=== PATIENT | female | born 1960 | race Caucasian/White ===

== ENCOUNTER 2023-08-27 11:55 | Emergency (ER) | payer OTHER, SELFPAY ==
[2023-08-27] VITALS (16 sets, daily range): BP systolic 118–153; BP diastolic 71–92; PULSE 78–96; RESP 20; TEMP 36.8; O2SAT 75–100; BMI 25.1
--- NOTE | 2023-08-27 12:27 | CRLHL7_ITS ---
For Patients: As a result of the Century Cures Act, medical imaging exams and procedure reports are released immediately into your electronic medical record. You may view this report before your referring provider. If you have questions, please contact your health care provider. Indication: Chest pain. Technique: Chest 2 views. Comparison: None. Findings: The cardiomediastinal silhouette size is normal. There is no focal pulmonary opacity, pleural effusion or pneumothorax. S shaped curvature of the spine. Impression: No acute cardiopulmonary abnormality. Dictated by Marina Gaytan MD @ 08/27/2023 1:21:32 PM (Electronically Signed)
--- NOTE | 2023-08-27 12:29 | ED_ITS ---
HPI - Chest Pain General Date Seen: 08/27/23 Chief Complaint: Chest Pain Stated Complaint: Chest pain Time Seen by Provider: 08/27/23 11:55 Source: patient and other Mode of arrival: ambulatory Limitations: no limitations History of Present Illness HPI narrative: Cp, started about 45 min ago while at rest. Pain feels like pressure and tightness. Pain has been consistent in weight and intermittent in pressure. Did note that she had some shortness of breath while walking this morning. Pt had an episode in July, did not get evaluated until 8 days later. Was then sent to a hand straightener, who had a CT angiogram on September 06 Patient is a very nice lady who presents here ambulatory from her [facility]. She describes some chest pain that started at 11:30 a.m. this morning while she was walking, this was associated with some shortness of breath, some epigastric discomfort. She had an episode similar to this in July of this year saw cardiology at [facility]. And CT angiogram is scheduled for September 06. She has no previous history of heart issues. She was evaluated in the ER but was 8 days after that she was seen. Her troponins an EKG were normal then. She has not undergone stress testing since then. She currently has some mild chest pressure, but no shortness of breath. There is no radiation of discomfort, she does not feel like she is going to pass out, no history of leg swelling previous clots. She has no previous history of coronary artery disease although her sister who is 10 years younger than her developed a mi, and had to have 2 stents placed when she was 42. History of elevated cholesterol, no history of diabetes, hypertension, drug use. History of a head injury in the past, and some right eye issues after this. She said this does affect her memory. MD complaint: chest pain, chest heaviness and chest discomfort Onset (ago): hour(s) Timing of current episode: still present Prior episodes: Yes Onset: during exertion Pain location: substernal Pain radiation: abdomen Severity: moderate Quality: tightness, heaviness and fullness Relieving factors: remaining still Exacerbating factors: exertion Treatment prior to arrival: none Risk Factors Coronary artery disease risk factors: hyperlipidemia and family history of CAD before age 50 Thoracic aortic dissection risk factors: none Related Data On Oral Contraceptives: No Home Medications ?Medication ?Instructions ?Recorded ?Confirmed atorvastatin 40 mg tablet 40 mg PO DAILY 08/27/23 08/27/23 Allergies Allergy/AdvReac Type Severity Reaction Status Date / Time citalopram [From Celexa] Allergy Verified 08/27/23 12:27 gabapentin Allergy Verified 08/27/23 12:27 Sulfa (Sulfonamide Allergy Hives Verified 08/27/23 12:27 Antibiotics) Review of Systems Status of ROS Reports: 10 or more systems reviewed and unremarkable except as noted in History and below PFSH [facility] Social History Smoking Status: Never smoker Do you use any of these nicotine containing products: None How often do you have a drink containing alcohol: never How often do you have six or more drinks on one occasion: Never AUDIT-C Alcohol total score: 0 Non-prescribed substance use: denies use service: No Exam Narrative Exam Narrative: Patient is speaking normally, no problem with slurring words, oriented x3. Head eyes ears nose and throat exam show equal pupils, no scleral icterus, extraocular muscles are normal, no facial droop, speech is normal, trachea normal and midline. Thyroid normal midline palpable not enlarged. Chest shows symmetrical rise bilaterally, normal auscultation with no wheezes, no increased work of breathing, no overt bruising or lesions seen, no tenderness is noted on auscultation. Heart sounds normal with no S3-S4 no murmurs clicks or gallops. Abdomen shows no obvious masses or hepatosplenomegaly, no organomegaly, bowel sounds are normal in all quadrants. No tenderness is noted also in all quadrants. Upper and lower extremities show normal power, normal range of motion, pulses are normal, sensations normal, fine motor movements are normal, pelvis is stable to rocking. Cervical spine shows normal range of motion, and palpably not tender. Thoracic spine shows normal range of motion, and palpably not tender, lumbar spine shows no tenderness to palpation percussion and is otherwise normal range of motion. Skin shows no rashes, petechiae or eccymosis. Const Vital Signs, click to edit/add: Vital Signs - 24 hr 08/27/23 12:11 08/27/23 12:11 08/27/23 12:12 Temperature 98.3 F Pulse Rate 88 82 Pulse Rate [Pulse Oximeter] 96 Respiratory Rate 20 Blood Pressure 153/92 H Blood Pressure [Right Upper Arm] 153/92 H Pulse Oximetry 99 100 100 Oxygen Delivery Method Room Air 08/27/23 12:15 08/27/23 12:27 08/27/23 12:30 Temperature Pulse Rate 95 Pulse Rate [Pulse Oximeter] Respiratory Rate Blood Pressure Blood Pressure [Right Upper Arm] Pulse Oximetry 99 98 75 L Oxygen Delivery Method 08/27/23 12:34 08/27/23 12:45 08/27/23 13:00 Temperature Pulse Rate 87 89 81 Pulse Rate [Pulse Oximeter] Respiratory Rate Blood Pressure 150/90 H Blood Pressure [Right Upper Arm] Pulse Oximetry 99 95 99 Oxygen Delivery Method 08/27/23 13:05 08/27/23 13:15 08/27/23 13:30 Temperature Pulse Rate 80 82 79 Pulse Rate [Pulse Oximeter] Respiratory Rate Blood Pressure 135/85 Blood Pressure [Right Upper Arm] Pulse Oximetry 100 96 99 Oxygen Delivery Method 08/27/23 13:33 08/27/23 13:45 08/27/23 14:00 Temperature Pulse Rate 82 80 82 Pulse Rate [Pulse Oximeter] Respiratory Rate Blood Pressure 126/71 Blood Pressure [Right Upper Arm] Pulse Oximetry 98 98 99 Oxygen Delivery Method 08/27/23 14:02 08/27/23 14:15 Temperature Pulse Rate 81 78 Pulse Rate [Pulse Oximeter] Respiratory Rate Blood Pressure 118/75 Blood Pressure [Right Upper Arm] Pulse Oximetry 98 98 Oxygen Delivery Method Documenting provider has reviewed patient's vital signs: yes Course Reevaluation(s) Time of Reevaluation #1: 15:28 Reevaluation #1: Patient doing well, she feels much improved just a little weak overall. She attributes this to staying in the dorm overnight and staying up and partying with her friends her is here now, I discussed with him that I did speak to cardiology at [facility] , she did confirm that she saw do set her up for a CT angiogram, her heart. This is to take place on September 06. Dr. Dalal asked that she call her hand straightener on Tuesday, and seeing if he would like to change this to a stress test. Putting her on aspirin, 81 mg would be appropriate. Returning to the emergency room if she has ongoing chest pain also is appropriate. Taking it easy. The patient her were comfortable with this plan. Vital Signs Vital signs: Initial Vital Signs Temperature 98.3 F 08/27/23 12:11 Temperature Source Temporal Artery Scan 08/27/23 12:11 Pulse Rate 88 08/27/23 12:11 Pulse Rhythm Regular 08/27/23 12:11 Respiratory Rate 20 08/27/23 12:11 Blood Pressure 153/92 H 08/27/23 12:11 Blood Pressure Mean 112 H 08/27/23 12:11 Blood Pressure Position Semi-Fowlers 08/27/23 12:11 Pulse Oximetry 99 08/27/23 12:11 Oxygen Delivery Method Room Air 08/27/23 12:11 Vital Signs Temperature 98.3 F 08/27/23 12:11 Pulse Rate 88 08/27/23 12:11 Respiratory Rate 20 08/27/23 12:11 Blood Pressure 153/92 H 08/27/23 12:11 Pulse Oximetry 99 08/27/23 12:11 Oxygen Delivery Method Room Air 08/27/23 12:11 Temperature 98.3 F 08/27/23 12:11 Pulse Rate 78 08/27/23 14:15 Respiratory Rate 20 08/27/23 12:11 Blood Pressure 118/75 08/27/23 14:02 Pulse Oximetry 98 08/27/23 14:15 Oxygen Delivery Method Room Air 08/27/23 12:11 Medications Administered Medications: Discontinued Medications Generic Name Dose Route Start Last Admin Trade Name Freq PRN Reason Stop Dose Admin Aspirin 324 mg 08/27/23 12:27 08/27/23 12:34 Aspirin 81 Mg Tab.Chew PO 08/27/23 12:28 324 mg ONCE ONE Administration MDM - Chest Pain MDM Narrative Medical decision making narrative: During the evaluation of this patient I considered multiple differential diagnosis is. The life-threatening differential diagnosis include coronary disease/NH, pulmonary embolism, pneumothorax, pneumonia, and aortic dissection. Other differential diagnosis included but were not limited to pericarditis, myocarditis, chest wall pain, GERD, esophageal rupture, rib fracture contusion, pleurisy, as well as other etiologies. Medical Records Data Attestation: I reviewed the patient's medical records. Lab Data Attestation: I reviewed the patient's lab results. Labs: Lab Results 08/27/23 08/27/23 08/27/23 Range/Units 12:20 12:28 14:39 WBC 7.24 (4.50-11.00) K/uL RBC 4.45 (4.00-5.20) m/uL Hgb 13.9 (12.0-16.0) gm/dL Hct 41.5 (33.0-51.0) % MCV 93 (80-100) fL MCH 31 (26-34) pg MCHC 34 (32-36) gm/dL RDW Coeff of Anuj 13.0 (11.5-15.5) % Plt Count 277 (140-440) K/uL Neut % (Auto) 60.6 (42.0-72.0) % Lymph % (Auto) 31.4 (20-44) % [place] % (Auto) 5.4 (0.0-11.0) % Eos % (Auto) 1.9 (0.0-7.0) % Baso % (Auto) 0.6 (0.0-3.0) % Neut # (Auto) 4.39 (1.7-7.0) K/uL Lymph # (Auto) 2.27 (0.90-2.90) K/uL [place] # (Auto) 0.40 (0.00-0.90) K/UL Eos # (Auto) 0.14 (0.00-0.50) K/uL Baso # (Auto) 0.04 (0.00-0.30) K/uL Abs Immat Gran (auto) 0.01 (0.00-0.30) K/uL Imm/Tot Granulo (auto) 0.1 % INR 0.88 L (0.91-1.10) APTT 26 (23-33) Seconds D-Dimer Quant (PE/DVT) 0.19 (0.00-0.50) ug/ml Sodium 140 (135-149) mmol/L Potassium 3.7 (3.6-5.1) mmol/L Chloride 103 (96-114) mmol/L Carbon Dioxide 26 (20-32) mmol/L Anion Gap 11 (7-15) mEq/L BUN 15 (7-30) mg/dL Creatinine 0.6 (0.5-1.5) mg/dL Estimated Creat Clear 44.02 Estimated GFR 101 ml/min Glucose 96 (60-115) mg/dL Calcium 9.6 (8.4-10.6) mg/dL Total Bilirubin 1.7 H (0.1-1.5) mg/dL Direct Bilirubin 0.3 (0.0-0.5) mg/dL AST 36 H (12-35) U/L ALT 29 (4-35) U/L Alkaline Phosphatase 64 (40-150) U/L NT-Pro-B Natriuret Pep 25 pg/mL Total Protein 8.7 H (6.0-8.3) g/dL Albumin 5.4 H (3.3-5.0) g/dL POC Troponin I 0.01 0.01 (0.01-0.04) ng/ml ECG Data ECG interpretation date: 08/27/23 Prior ECG tracings: not available for review Interpretation: EKG shows normal sinus rhythm with a ventricular rate 85, no acute ST wave changes. Second EKG done 2 hours later shows no acute changes. Unchanged from previous Discharge Plan Discharge Clinical Impression: Chest pain Patient Disposition: Home w/ Parent or Adult Condition: Improved Instructions: Chest Pain (DC) Additional Instructions: Home rest and use of the ASA 81 this is OTC ( baby Aspirin)mg po daily. Return to the ER if worsening chest pain, shortness of breath. Call your Fermentation Manager on Tuesday to inform him you were in the ER and if now he would like to do a Stress test. Prescriptions: No Action atorvastatin 40 mg tablet 40 mg PO DAILY Follow Up/Referrals: Provider,Not a Local [Primary Care Provider] - Stand Alone Forms: [facility] Info Instructions
[2023-08-27] MEDS: ASPIRIN 81 MG TAB.CHEW 324 MG PO (12:34)
[2023-08-27 12:37] LABS: Troponin, Point-of-Care* 0.01 ng/ml (0.01-0.04)
[2023-08-27 12:41] LABS: Basophils Absolute Auto 0.04 K/uL (0.00-0.30); Basophils Percent Auto 0.6 % (0.0-3.0); Eosinophils Absolute Auto 0.14 K/uL (0.00-0.50); Eosinophils Percent Auto 1.9 % (0.0-7.0); Hematocrit 41.5 % (33.0-51.0); Hemoglobin* 13.9 gm/dL (12.0-16.0); Immature Granulocytes Abs Auto 0.01 K/uL (0.00-0.30); Immature Granulocytes Pct Auto 0.1 %; Lymphocytes Absolute Auto 2.27 K/uL (0.90-2.90); Lymphocytes Percent Auto 31.4 % (20-44); Mean Corpuscular HGB Conc 34 gm/dL (32-36); Mean Corpuscular Hemoglobin 31 pg (26-34); Mean Corpuscular Volume 93 fL (80-100); Monocytes Percent Auto 5.4 % (0.0-11.0); Neutrophils Absolute Auto 4.39 K/uL (1.7-7.0); Neutrophils Percent Auto 60.6 % (42.0-72.0); Platelet Count* 277 K/uL (140-440); Red Blood Count 4.45 m/uL (4.00-5.20); White Blood Count* 7.24 K/uL (4.50-11.00)
[2023-08-27 12:52] LABS: Slide Review Reflex No
[2023-08-27 12:54] LABS: INR 0.88 (0.91-1.10); Prothrombin Time 12.4 Seconds
[2023-08-27 12:55] LABS: Albumin* 5.4 g/dL (3.3-5.0); Partial Thromboplastin Time* 26 Seconds (23-33)
[2023-08-27 12:56] LABS: Chloride* 103 mmol/L (96-114); Potassium* 3.7 mmol/L (3.6-5.1); Sodium* 140 mmol/L (135-149)
[2023-08-27 12:58] LABS: Aspartate Amino Transferase* 36 U/L (12-35); Bilirubin Direct* 0.3 mg/dL (0.0-0.5); Bilirubin Total* 1.7 mg/dL (0.1-1.5); Total Protein* 8.7 g/dL (6.0-8.3)
[2023-08-27 12:59] LABS: Alanine Aminotransferase* 29 U/L (4-35); Alkaline Phosphatase* 64 U/L (40-150); Anion Gap 11 mEq/L (7-15); Carbon Dioxide* 26 mmol/L (20-32); Creatinine* 0.6 mg/dL (0.5-1.5); Est. Creatinine Clearance* 44.02; Estimated Glomerular Filt Rate 101 ml/min
[2023-08-27 13:00] LABS: Blood Urea Nitrogen* 15 mg/dL (7-30); Calcium* 9.6 mg/dL (8.4-10.6); Glucose* 96 mg/dL (60-115)
[2023-08-27 13:15] LABS: D Dimer Quantitative* 0.19 ug/ml (0.00-0.50)
[2023-08-27 13:16] LABS: NT Pro B Type NatriureticPept* 25 pg/mL
[2023-08-27 14:53] LABS: Troponin, Point-of-Care* 0.01 ng/ml (0.01-0.04)
== END 2023-08-27 15:42 | disposition home or self-care (01) ==
PROVIDERS: Emergency Provider Family Medicine
DX: R07.9 Chest pain, unspecified (principal)
CPT/HCPCS: 36415; 71046; 76705; 80048; 80076; 83880; 84484; 85025; 85379; 85610; 85730; 93005; 94761; 99284; 99285; A9270